=== PATIENT | male | born 1960 | race Caucasian/White ===

== ENCOUNTER → 2020-09-07 | Outpatient (CLI) | payer OTHER ==
[~2020-09-07] MED LIST: DOXEPIN HCL6 MG PO; MINIPRESS2 MG PO; NEURONTIN 300M300 M2 PO; SERTRALINE HCL100 MG PO; TEMAZEPAM30 MG PO
== END ==
LOC: LAB 09:03
PROVIDERS: ATTEND Orthopaedic Surgery Sports Medicine
DX: Z01.812 Encounter for preprocedural laboratory examination (principal); Z20.822 Contact with and (suspected) exposure to COVID-19

== ENCOUNTER 2020-09-13 06:04 | Observation (INO) | payer OTHER ==
[2020-09-07 09:18] LABS: HEMATOCRIT 43.1 % (42.0-52.0); HEMOGLOBIN 14.2 gm/dL (14.0-18.0); MCH 28.3 pg (26.0-34.0); MCHC 32.9 g/dL (28.0-37.0); MCV 85.9 fL (80.0-100.0); RBC 5.02 mil/uL (4.50-6.00); RDW 14.5 % (10.5-14.5); WBC 4.8 thou/uL (4.0-11.0)
[2020-09-07 09:19] LABS: URINE BILIRUBIN NEGATIVE (Negative); URINE BLOOD NEGATIVE (Negative); URINE CLARITY CLEAR; URINE COLOR YELLOW; URINE GLUCOSE-RANDOM* NEGATIVE (Negative); URINE KETONES NEGATIVE (Negative); URINE LEUKOCYTES-REFLEX NEGATIVE (Negative); URINE NITRITE-REFLEX NEGATIVE (Negative); URINE PROTEIN (DIPSTICK) NEGATIVE (Negative); URINE SPECIFIC GRAVITY 1.025 (1.005-1.035)
[2020-09-07 09:29] LABS: ALBUMIN 3.8 g/dL (3.4-5.0); CALCIUM 9.2 mg/dL (8.5-10.1); POTASSIUM 4.3 mmol/L (3.5-5.1)
[2020-09-07 09:34] LABS: PROTIME 10.2 Seconds (9.3-11.4)
[~2020-09-13] VITALS: Ht 185.4 cm; Wt 103.9 kg
[2020-09-13 06:56] VITALS: BP 131/89
[2020-09-13 11:58] VITALS: BP 122/87
[2020-09-13 18:26] VITALS: BP 123/83
--- NOTE | 2020-09-13 18:37 | NUR ---
Pt arrived to floor from recovery room at 1130 in stable condition.Post op assessment completed.vss.Pt c/o rt knee pain,oral pain med given with partial relief.Physical therapist eval pt later this afternoon ,pt unable to walk yet but transfer to chair with assist.snacks given at lunch and well tolerated. Regular tray given at dinner.Pt on cont.ivf with vanco at present.Will continue to monitor.
[2020-09-13 19:53] VITALS: BP 127/75
--- NOTE | 2020-09-14 03:49 | NUR ---
ASSUMED PT CARE AT 1900.PT C/O PAIN TO HIS R KNEE,MANAGED WITH MED.LEIA DRSG/YUE/SCD/POLAR PACK IN PLACE.PT ABLE TO REPOSITION SELF IN BED.URINAL AT BEDSIDE WITH GOOD URINE OUTPUT.IVF AND IV ABX ADMINISTERED ORDERED.PT SLEEPING ON HIS BED AT THIS TIME.CALL LIGHT WITHIN REACH.
[2020-09-14 05:51] LABS: HEMATOCRIT 39.5 % (42.0-52.0); HEMOGLOBIN 13.1 gm/dL (14.0-18.0); MCH 28.8 pg (26.0-34.0); MCHC 33.2 g/dL (28.0-37.0); MCV 86.8 fL (80.0-100.0); RBC 4.55 mil/uL (4.50-6.00); RDW 14.7 % (10.5-14.5); WBC 9.9 thou/uL (4.0-11.0)
[2020-09-14 07:25] VITALS: BP 125/77
--- NOTE | 2020-09-14 09:29 | NUR ---
Assumed care of pt at 0700. Pt a&ox4. Pain controlled with prn pain meds. Pt working with physical therapy this am. Walker to be delievered in hospital room. Dressing c/d/i. SCDs and YUE hose in place. Polar care in place. Call light within reach. Fall precautions in place. Will continue to monitor.
--- NOTE | 2020-09-14 09:52 | NUR ---
ASSESSMENT: CM REVIEWED CHART. PT IS S/P R TKA AND IS A [employer] CASE. CM MET WITH PATIENT WHO IS ALERT AND ORIENTED X4. PT REPORTS THAT HE LIVES AT HOME WITH HIS GIRLFRIEND AND TWO DAUGHTERS. PT REPORTS HE ENTERS THROUGH THE GARAGE AND HAS NO STEPS AND WILL STAY ON THAT LEVEL FOR A WHILE. PT REPORTS HE WAS DELIVERED A STANDARD WALKER BUT PHYSICAL THERAPY IS RECOMMENDING A FWW. CM CONTACTED PATIENTS QUOTATION CLERK THROUGH [employer] [facility] [employer] [phone] WHO REPORTS THEY WILL AUTHORIZE A FWW. PT HAS NO PREFERENCE OF [employer]. CM NOTIFIED [employer] WHO REPORTS THEY CAN SUPPLY IT AND WILL CONTACT QUOTATION CLERK THROUGH [employer], CM PROVIDED [employer] CONTACT INFO. WALKER WAS DELIVERED TO PATIENTS ROOM. PT REPORTS HAVING OUTPATIENT THERAPY ALREADY ARRANGED IN [place], [place]. PT IS TO WORK WITH THERAPY TODAY. CM WILL CONTINUE TO FOLLOW TO ASSIST NEEDED. PT WILL HAVE TRANSPORTATION HOME VIA TRANSPORT COMPANY PROVIDED BY [employer] HIS QUOTATION CLERK STATES AND REPORTS PT HAS THE CONTACT INFORMATION. CM WILL CONTINUE TO FOLLOW.
[2020-09-14 09:56] VITALS: BP 125/77
--- NOTE | 2020-09-14 10:11 | O ---
[address] [address] OPERATIVE REPORT Name: CARMENCITA RAMÍREZ Room #: 438-P [facility]..#: [id number] Admission: 09/13/20 Attend Phys: Norman Serra MD Discharge: Date of : 64 Report #: [id number] THIS REPORT FOR: cc: Karena Crisostomo MD, Dana C. MD McCabe,Norman Pickering MD ~ DATE OF SERVICE: 09/13/2020 SERVICE: Orthopedics. FACILITY: [facility]. SURGEON: Norman Serra MD SPORTS EQUIPMENT RACKER: Kellie Gil NP INDICATIONS FOR SPORTS EQUIPMENT RACKER: Exposure, retraction, closure and assistance with the arthroplasty. PREOPERATIVE DIAGNOSES: 1. Work-related injury, right knee. 2. Status post right knee partial meniscectomy with articular cartilage lesion, right knee. 3. Right knee medial compartment osteoarthritis. POSTOPERATIVE DIAGNOSES: 1. Work-related injury, right knee. 2. Status post right knee partial meniscectomy with articular cartilage lesion, right knee. 3. Right knee medial compartment osteoarthritis. PROCEDURES: 1. Right unicompartmental knee arthroplasty. 2. Robotic-assisted arthroplasty. COMPLICATIONS: None. DRAINS: None. SPECIMENS: None. ANESTHESIA: General with regional. ESTIMATED BLOOD LOSS: [address] [address] OPERATIVE REPORT Name: CARMENCITA RAMÍREZ JR Room #: 438-P [id number] Admission: 09/13/20 Attend Phys: Norman Serra MD Discharge: Date of : 64 Report #: [id number] FINDINGS: 1. Intact patellofemoral and lateral compartment. 2. [employer] II size 9 Oxinium femoral component, size 8 tibial component, 9 mm poly insert. HISTORY: The patient is a 60-year-old gentleman who sustained an injury on the job. He has had an I am involved history. Subsequently, he had articular cartilage injury and a medial meniscus tear that was treated with partial meniscectomy by an outside physician, but he continued to have medial-sided pain. He presented and underwent a revision arthroscopy and chondroplasty, but continued to have medial-sided knee pain and x-rays demonstrated progression to osteoarthritis of the medial compartment secondary to the traumatic injury to the articular cartilage that occurred on the job. After failing conservative measures, he was indicated for surgical treatment. Risks, benefits, alternatives, and indication of surgery discussed with him in detail. Risks include but not limited to pain, bleeding, infection, injury to nerves or blood vessels, persistent pain despite surgical intervention, failure of the procedure, need for further surgery including conversion to total as well as complications related to anesthesia such as stroke, heart attack, pulmonary complications, thromboembolic disease and . Despite these risks, he wished to proceed. PROCEDURE IN DETAIL: After the right lower extremity was correctly identified as the operative extremity, the patient underwent regional nerve block was then taken to the operating room where general anesthesia was induced without complications. He was padded appropriately. Prophylactic antibiotics were administered at appropriate time. Tourniquet was applied to right leg. Right lower extremity was then prepped and draped in standard sterile fashion. Timeout procedure performed. Esmarch was used. Tourniquet inflated to 250 mmHg. Standard anterior approach was made with medial parapatellar arthrotomy and the medial compartment was exposed. The patellofemoral compartment was carefully evaluated and found to be intact as was the lateral compartment. The cruciate ligaments were intact. He had a full thickness articular cartilage lesion throughout the medial femoral condyle consistent with osteoarthritis. This was more severe posteriorly. The tibia demonstrated arthritis as well on the medial compartment. The checkpoints and half pins were placed to allow usage of the [employer] robotic-assisted system and then the femoral and tibial anatomy were mapped out with the Navio. We then assessed for positioning of the implants and sizing. I then proceeded with the femoral milling including the two lug holes and then proceeded with milling on the tibial side as well. Templating indicated that the preoperative 4 degrees of varus would be corrected to 1-2 degrees. The trials were placed after bone milling had been completed. This also followed excision of the medial meniscus remnant as well as fine [address] [address] OPERATIVE REPORT Name: RAMÍREZCARMENCITA Room #: 438-P [facility] M.RSinan#: [id number] Admission: 09/13/20 Attend Phys: Norman Serra MD Discharge: Date of : 64 Report #: [id number] tuning the femoral and tibial bone preparation. We initially checked gaps with an 8 mm polyethylene insert with the femoral and tibial trials in and this seemed to be balanced with perhaps slightly loose in extension and switched to a 9 mm and this actually provided significantly improved balancing in particular the extension position. The flexion gap was appropriate for the clinical circumstances. We selected these sizes for final implants, removed the trial and showed there were no residual osteophytes in the posterior aspect of the knee and then injected 40 mL of the approximately 120 mL periarticular injection cocktail into the posterior capsule and then proceeded with additional injections around the periosteum of the femur and the tibia. The bone was prepared with the pulse lavage and then the tibial component was cemented into position and then the femoral component was cemented as well. We placed a 9 mm trial into the tibial tray and it held the knee into extension. Excess cement was removed. The tourniquet was let down while the cement cured. Hemostasis was achieved and then the final periarticular injection was injected in the soft tissues around the knee. After this was completed, the trial was assessed for balancing. Again, I was happy with the 9 mm sizing. We removed the trial, irrigated the knee once more, confirmed that all excess cement had been resected and then placed the final 9 mm poly insert into position and took the knee through a final range of motion. It was well balanced in good alignment. The postoperative alignment based on the Navio calculation was 2 degrees varus. The wound was once more copiously irrigated and then the arthrotomy was closed with 0 Vicryl suture in [id number] fashion over 1 gram of vancomycin powder. The skin was closed with 2-0 Vicryl followed by running subcuticular 3-0 Monocryl. Sterile dressing was applied followed by a thigh-high compression stocking and a PolarCare device. The patient was then awakened from anesthesia and taken to recovery room in stable condition. No complications. All counts were recorded as correct. <ELECTRONICALLY SIGNED> By: Norman Serra MD 09/14/20 1011 06 30 Norman Serra MD /nt
[2020-09-14 13:17] VITALS: BP 125/77
== END 2020-09-14 18:21 | disposition home or self-care (01) ==
LOC: OR 06:04 → TBA 06:04 → OR 07:56 → 4S 11:48 → OR 11:48 → 4S 09-14 18:21
PROVIDERS: ADMIT Orthopaedic Surgery Sports Medicine; ATTEND Orthopaedic Surgery Sports Medicine
DX: M17.31 Unilateral post-traumatic osteoarthritis, right knee (principal); Z98.890 Other specified postprocedural states; X58.XXXA Exposure to other specified factors, initial encounter; Y92.89 Other specified places as the place of occurrence of the external cause; Y93.89 Activity, other specified; Y99.0 Civilian activity done for income or pay
CPT/HCPCS: 50010; 50101; 50415; 50915; 50954; 51130; 51225; 51320; 52001; 52282; 53078; 54118; 56527; 56528; 57095; 57103; 57110; 57127; 57180; 62110; 62900; 64043; 65060; 70005